=== PATIENT | male | born 1990 | race Caucasian/White ===

== ENCOUNTER 2025-03-09 21:31 | Emergency (ER) | payer SELFPAY ==
--- NOTE | ~2025-03-09 | XR_ITS ---
Examination: XR chest 2V Clinical History: sob Comparison: None Technique: PA and Lateral Findings: Cardiomediastinal silhouette normal size and configuration. Lungs clear. No acute bony abnormality. IMPRESSION: 1. No acute cardiopulmonary findings. Reviewed, dictated and finalized at location R. R MACHINE OPERATOR HELPER
[2025-03-09 21:36] VITALS: BP 161/96; PULSE 81; RESP 16; TEMP 36.3; O2SAT 99
--- NOTE | 2025-03-10 | ECG_ITS ---
Test Date: 2025-03-10 00:12:38 Measurements Intervals [place] Rate: 65 P: 41 FL: 171 QRS: 20 QRSD: 104 T: 32 QT: 384 QTc: 399 Interpretive Statements SINUS RHYTHM NONSPECIFIC T-WAVE ABNORMALITY No previous ECG available for comparison Electronically Signed On 03-10-2025 21:18:18 FLAT FOLDING MACHINE OPERATOR by Marciano Garcia M.D.
[2025-03-10 00:07] VITALS: BP 127/72; PULSE 70; RESP 14; O2SAT 96
--- NOTE | 2025-03-10 00:17 | ED.SOB ---
HPI - SOB/Dyspnea General Chief Complaint: Shortness of Breath/Dyspnea Stated Complaint: sob Time Seen by Provider: 03/09/25 23:47 Source: patient Mode of arrival: ambulatory Limitations: no limitations History of Present Illness HPI Narrative: This is a 35 year old male that presents to the ER for shortness of breath. Ongoing since he woke up this morning. Reports he feels like he has had to think about breathing all day. Reports history of sleep apnea for which he does not wear a CPAP. Reports he has had some difficulty swallowing the last several months. Worse with meats. Denies fevers, chest pain, vomiting. Review of Systems Review of Systems: All systems reviewed & are unremarkable except as noted in HPI and below PMFSH Past Medical History Medical History (Updated 03/10/25 @ 01:45 by Carine Che PA-C) Anxiety Exam Narrative: GENERAL: Well-appearing, well-nourished, and in no acute distress. HEAD: Normocephalic, atraumatic. EYES: EOMI. CHEST: Clear to auscultation. No respiratory distress. No wheezes rales or rhonchi HEART: Regular rate and rhythm. No murmur heard. Normal peripheral pulses. EXTREMITIES: Normal range of motion. No edema. SKIN: Warm, dry, no rash. NEURO: No focal deficits. Alert and oriented x3. PSYCH: Normal mood and affect Course Vital Signs Vital signs: Vital Signs Temperature 97.4 F L 03/09/25 21:36 Pulse Rate 81 03/09/25 21:36 Respiratory Rate 16 03/09/25 21:36 Blood Pressure 161/96 H 03/09/25 21:36 Pulse Oximetry 99 03/09/25 21:36 Oxygen Delivery Room Air 03/09/25 21:36 Temperature 97.4 F L 03/09/25 21:36 Pulse Rate 93 03/10/25 01:26 Respiratory Rate 16 03/10/25 01:26 Blood Pressure 130/83 03/10/25 01:26 Pulse Oximetry 99 03/10/25 01:29 Oxygen Delivery Room Air 03/10/25 01:29 MDM - SOB/Dyspnea MDM Narrative Medical decision making narrative: Patient presents the emergency department for shortness of breath. He is afebrile and nontoxic. Lungs are clear on exam oxygen saturation is normal on room air. CBC with leukocytosis to 14.2. Metabolic panel without concerning findings. D-dimer is not elevated. TSH is normal. Chest x-ray without acute cardiopulmonary abnormality. EKG without concerning changes. Patient updated on his workup and agrees with plan of care. Instructed on further follow-up with primary provider. He was given warnings to return to the ER Differential Diagnosis Differential diagnosis: Likely community acquired pneumonia, asthma with exacerbation, pulmonary embolism and other (anxiety, GERD, sleep apnea, electrolyte derangement) Lab Data Attestation: I reviewed the patient's lab results. 03/10/25 00:34 03/10/25 00:34 Labs: Lab Results 03/10/25 Range/Units 00:34 WBC 14.2 H (4.5-10.0) K/mm3 RBC 5.51 (4.6-6.20) M/mm3 Hgb 15.8 (14.0-18.0) g/dL Hct 47.1 (42.0-52.0) % MCV 85.5 (80-100) fl MCH 28.7 (26-34) pg MCHC 33.5 (32-36) g/dl RDW 12.0 (11.5-14.5) % Plt Count 324 (150-375) k/mm3 MPV 10.2 (7.4-10.4) fl Immature Gran % (Auto) 4.6 H (0-0.5) % Neut % (Auto) 66.4 (45.5-73.1) % Lymph % (Auto) 21.5 (18.3-44.2) % [place] % (Auto) 5.8 (2.6-8.5) % Eos % (Auto) 1.3 (0-4.4) % Baso % (Auto) 0.4 (0.2-1.2) % Lymph # (Auto) 3.05 (0.9-3.2) K/mm3 [place] # (Auto) 0.8 H (0.1-0.6) K/mm3 Eos # (Auto) 0.2 (0-0.3) K/mm3 Baso # (Auto) 0.1 (0.0-0.1) K/mm3 Abs Immat Gran (auto) 0.65 H (0.00-0.031) K/mm3 Absolute Neuts (auto) 9.4 H (1.3-6.7) K/mm3 Absolute Nucleated RBC 0.000 (0.0-0.012) K/mm3 Nucleated RBC % 0.0 (0.0-0.2) % PT 14.4 (11.1-14.7) Seconds INR 1.1 APTT 31.2 (22.3-36.8) Seconds D-Dimer < 0.27 (<0.48) ug/mL Sodium 139 (137-145) mmol/L Potassium 3.8 (3.4-5.0) mmol/L Chloride 103 (98-107) mmol/L Carbon Dioxide 27 (22-30) mmol/L Anion Gap 9 (4-12) mmol/L BUN 15 (9-20) mg/dL Creatinine 1.01 (0.7-1.3) mg/dL Estim Creat Clear Calc 118 ml/min Estimated GFR > 60 (59 - ) Glucose 106 (65-110) mg/dL Calcium 9.4 (8.4-10.2) mg/dL Total Bilirubin 0.7 (0.2-1.3) mg/dL AST 33 (17-59) U/L ALT 24 (6-50) U/L Alkaline Phosphatase 76 (38-126) U/L Total Protein 8.3 H (6.3-8.2) g/dL Albumin 4.7 (3.5-5.1) g/dL TSH (Reflex) 2.130 (0.465-4.68) uIU/mL Imaging Data Radiologist's impression: Chest x-ray: No acute finding ECG Data EKG #1: ECG completion date: 03/10/25 EKG Interpretation: normal rate, sinus rhythm, no ST changes and normal QT Critical Care Time Critical Care Time Critical Care Time: No Discharge Plan Discharge Clinical Impression: Shortness of breath Patient Disposition: Home Condition: Stable Instructions: Dyspnea (ED) Additional Instructions: Return to the emergency department if you experience fever, chest pain, worsening shortness of breath, you are unable to keep down liquids or solids, or any other symptoms that are concerning to you. Follow up with primary care doctor and gastroenterology Patient Language: Japanese Follow-up/Referrals: Lake Inman MD [Physician, Family Practice] Darion Sarabia MD [Physician, Gastroenterology] UNKNOWN,DOCTOR [Non-Staff]
--- OUTSIDE RECORDS SUMMARY | 2025-03-10 00:27 | XMS_ITS | Clinical Summary ---
Author Organization [facility] Care Team Providers Care Utility Engineer Name Role Phone Unavailable Primary Care Provider Unavailabl e Social History Tobacco Use Types Packs/Day Years Used Date Smoking Tobacco: Never Assessed Sex and Gender Information Value Date Recorded Sex Assigned at Not on file Legal Sex Male 12:34 PM CDT Gender Identity Not on file Sexual Orientation Not on file Plan of Treatment Health Maintenance Due Date Last Done Comments Hepatitis C Virus (HCV) Screening 1992 TdaP Immunization 1992 Hepatitis B Immunization (1 of 3 - 19+ 3-dose series) 01/04/2011 Human Papillomavirus (HPV) Immunization (1 - 3-dose SCDM series) 01/04/2019 Influenza Immunization (#1) 2025 SARS-COV-2 Immunization ( season) 2025 Respiratory Syncytial Virus (RSV) Immunization (Adult) (1 - 1-dose 75+ series) 01/04/2067 Meningococcal Immunization (ACWY) Aged Out No longer eligible based on patient's age to complete this topic Pneumococcal Immunization Combined Aged Out No longer eligible based on patient's age to complete this topic Rotavirus Immunization Aged Out No lo nger eligible based on patient's age to complete this topic
[2025-03-10 00:56] LABS: Alanine Aminotransferase 24 U/L (6-50); Albumin Level 4.7 g/dL (3.5-5.1); Alkaline Phosphatase 76 U/L (38-126); Anion Gap 9 mmol/L (4-12); Aspartate Amino Transferase 33 U/L (17-59); Bilirubin,Total 0.7 mg/dL (0.2-1.3); Blood Urea Nitrogen 15 mg/dL (9-20); Calcium 9.4 mg/dL (8.4-10.2); Carbon Dioxide 27 mmol/L (22-30); Chloride 103 mmol/L (98-107); Estimated CRCL calculation 118 ml/min; Estimated Glomerular Filt Rate > 60; Glucose 106 mg/dL (65-110); Potassium 3.8 mmol/L (3.4-5.0); Sodium 139 mmol/L (137-145); Total Protein 8.3 g/dL (6.3-8.2)
[2025-03-10 01:00] LABS: Hematocrit 47.1 % (42.0-52.0); Hemoglobin 15.8 g/dL (14.0-18.0); Immature Granulocyte Percent A 4.6 % (0-0.5); Lymphocytes Absolute Auto 3.05 K/mm3 (0.9-3.2); Mean Corpuscular HGB Conc 33.5 g/dl (32-36); Mean Corpuscular Hemoglobin 28.7 pg (26-34); Mean Corpuscular Volume 85.5 fl (80-100); Nucleated Red Blood Cells Absolute Auto 0.000 K/mm3 (0.0-0.012); Nucleated Red Blood Cells Perc 0.0 % (0.0-0.2); Platelet Count Result 324 k/mm3 (150-375); Red Blood Count 5.51 M/mm3 (4.6-6.20); White Blood Count 14.2 K/mm3 (4.5-10.0)
[2025-03-10 01:07] LABS: INR 1.1; Prothrombin Time 14.4 Seconds (11.1-14.7)
[2025-03-10 01:08] LABS: Partial Thromboplastin Time 31.2 Seconds (22.3-36.8)
[2025-03-10 01:26] VITALS: BP 130/83; PULSE 93; RESP 16; O2SAT 96
[2025-03-10 01:26] LABS: Thyroid Stimulating Hormone Reflex 2.130 uIU/mL (0.465-4.68)
[2025-03-10 01:29] VITALS: O2SAT 99
[2025-03-10 02:35] VITALS: BP 119/78; PULSE 87; RESP 15; O2SAT 98
[2025-03-10 03:02] VITALS: BP 119/78; PULSE 87; RESP 15; O2SAT 98
== END 2025-03-10 03:07 | disposition home or self-care (01) ==
PROVIDERS: Emergency Provider Physician Assistant
DX: R06.02 Shortness of breath (principal); F41.9 Anxiety disorder, unspecified; G47.30 Sleep apnea, unspecified
CPT/HCPCS: 36415; 71046; 80053; 84443; 85025; 85380; 85610; 85730; 93005; 99283